=== PATIENT | male | born 1950 | race Caucasian/White ===

== ENCOUNTER 2023-05-10 05:53 | Day surgery (SDC) | payer OTHER ==
[2023-05-06 11:27] LABS: BASOPHILS # (AUTO) 0.04 K/uL (0.00-0.20); BASOPHILS % (AUTO) 0.6 % (0.0-5.0); HEMATOCRIT 40.1 % (42-54); IMMATURE GRANULOCYTE ABSOLUTE 0.02 K/uL (0-1); LYMPHOCYTES % (AUTO) 29.5 % (21.0-51.0); MEAN CORPUSCULAR HEMOGLOBIN 31.2 pg (27.0-33.0); MEAN CORPUSCULAR HGB CONC 33.4 g/dL (32.0-36.0); MEAN CORPUSCULAR VOLUME 93.3 fL (79-99); MONOCYTES # (AUTO) 0.7 K/uL (0.1-1.0); MONOCYTES % (AUTO) 10.6 % (3.0-13.0); NEUTROPHILS # (AUTO) 3.7 K/uL (1.8-7.7); PLATELET COUNT (AUTO) 194 K/uL (130-400); RED CELL DISTRIBUTION WIDTH 14.4 % (11.0-15.5); WHITE BLOOD COUNT (AUTO) 6.7 K/uL (4.8-10.8)
[2023-05-06 11:45] VITALS: BP 122/68; PULSE 56; RESP 18
[2023-05-06 12:04] LABS: INR 0.97 (0.85-1.15); PROTHROMBIN TIME 11.5 SEC (9.6-11.6)
[2023-05-06 12:05] LABS: PARTIAL THROMBOPLASTIN TIME 35.4 SEC (26.3-35.5)
[~2023-05-10] VITALS: Ht 182.9 cm; Wt 107.2 kg
[~2023-05-10 05:53] MED LIST: APIX5TAB PO; ATOR-2 PO; FLEC100T3 PO; PIND10TA2 PO; TAMS-1 PO
[2023-05-10 06:00] VITALS: BP 121/72; PULSE 58; RESP 16
[2023-05-10] MEDS: 0.9%NACL 1000ML 1,000 ML IV ONE (06:32)
[2023-05-10] MEDS ORDERED: LIDOCAINE HCL 400MG/20ML VIAL ONE (07:25)
[2023-05-10] MEDS ORDERED: FENTANYL CITRATE PF 50 MCG/1 ML 2ML VIAL ONE (07:26)
[2023-05-10] MEDS ORDERED: SODIUM BICARB 50MEQ 50ML VIAL 50 ML ONE (07:26)
[2023-05-10] MEDS ORDERED: MIDAZOLAM HCL 1 MG/ML 2ML VIAL ONE (07:26)
[2023-05-10 08:55] VITALS: BP 132/71; PULSE 56; RESP 16
[2023-05-10 09:10] VITALS: BP 132/70; PULSE 55; RESP 16
== END 2023-05-10 09:23 | disposition home or self-care (01) ==
LOC: DAH 05:53
PROVIDERS: ATTEND Internal Medicine Cardiovascular Disease
DX: Z45.09 Encounter for adjustment and management of other cardiac device (principal); I48.0 Paroxysmal atrial fibrillation; D68.69 Other thrombophilia; E78.5 Hyperlipidemia, unspecified; E66.3 Overweight; G47.33 Obstructive sleep apnea (adult) (pediatric); Z79.01 Long term (current) use of anticoagulants; Z79.899 Other long term (current) drug therapy; Z82.49 Family history of ischemic heart disease and other diseases of the circulatory system; Z87.891 Personal history of nicotine dependence; Z68.33 Body mass index [BMI] 33.0-33.9, adult
CPT/HCPCS: 85025; 85610; 85730; 36415; 93005; 33286; A4649; J3010; J3490 ×2; J7030; J2250; A4215; A4222; A4221; A4663; A4216; A4606; A4223 ×3; 99156; 99157